=== PATIENT | male | born 1990 | race Two or more races ===

== ENCOUNTER 2022-09-21 16:51 | Emergency (ER) | payer BC ==
[~2022-09-21] VITALS: Ht 182.9 cm; Wt 163.3 kg
[2022-09-21] MEDS ORDERED: MEDROLPACK PO (18:15)
[2022-09-21] MEDS ORDERED: CLOTRIMAZOLE-BE15 G1 TOP (18:15)
== END 2022-09-21 19:26 | disposition home or self-care (01) ==
LOC: ER 16:51
DX: L71.9 Rosacea, unspecified (principal)